=== PATIENT | male | born 1975 | race Caucasian/White ===

== ENCOUNTER 2023-03-16 11:18 | Outpatient (CLI) | payer OTHER, SELFPAY ==
--- NOTE | 2023-03-16 13:36 | W.ANESCHARGE ---
Anesthesia Charges Start Date/Time Anesthesia Start Date: 03/16/23 Anesthesia Start Time: 13:09 Stop Date/Time Anesthesia Stop Date: 03/16/23 Anesthesia Stop Time: 13:30
--- NOTE | 2023-03-16 14:31 | W.ANESCHARGE ---
Anesthesia Charges Start Date/Time Anesthesia Start Date: 03/16/23 Anesthesia Start Time: 13:09 Stop Date/Time Anesthesia Stop Date: 03/16/23 Anesthesia Stop Time: 13:30
== END 2023-03-16 11:19 | disposition home or self-care (01) ==
LOC: OP CLINIC 11:21
PROVIDERS: PCP Family Medicine; Visit Provider Surgery
DX: Z12.11 Encounter for screening for malignant neoplasm of colon (principal)
CPT/HCPCS: 00812; 45378; J2704